=== PATIENT | female | born 1945 | race Caucasian/White ===

== ENCOUNTER 2017-01-12 05:36 | Day surgery (SDC) | payer MEDICARE, BC ==
[~2017-01-12 05:36] MED LIST: Dextrose 5%-0.45% NaCl 1,000 ML IV SCH; Sodium Chloride 0.9% 10 ML Syringe FLUSH PRN
[2017-01-12] MEDS ORDERED: Dextrose 5%-0.45% NaCl 1,000 ML IV SCH (06:00)
[2017-01-12] MEDS ORDERED: Sodium Chloride 0.9% 10 ML Syringe FLUSH PRN (06:00)
[2017-01-12] MEDS ORDERED: Midazolam 1 MG/ML 2 ML SDV ONE (06:15)
[2017-01-12] MEDS ORDERED: fentaNYL 100 MCG/2 ML SDV ONE (06:15)
[2017-01-12] MEDS ORDERED: fentaNYL 100 MCG/2 ML SDV IV ONE ×3 (06:33→14:54)
[2017-01-12] MEDS ORDERED: Midazolam 1 MG/ML 2 ML SDV IV ONE ×3 (06:33→14:54)
[2017-01-12 10:48] VITALS: BP 125/66
--- NOTE | 2017-01-12 12:23 | OR ---
DATE: 01/12/2017 PROCEDURE: Esophagogastroduodenoscopy and multiple pinch biopsies. INSTRUMENT USED: GIF-H180 Olympus video panendoscope. PREMEDICATIONS: No oral topical anesthesia used. Fentanyl 100 mcg intravenous, Versed 2 mg intravenous, nasal O2 cannula. The procedure was done under pulse oximetry, BP recording, and awake overnight monitor. INDICATION: The patient with persistent heartburn, dyspepsia, and upper abdominal pain, unexplained, and not responsive to medical measures, on long- term PPI, also on aspirin related medications. Esophagogastroduodenoscopy is performed for detection of any active erosive lesions, Rick esophagus and/or malignancy also under consideration, H. pylori status to be determined, endoscopic hemostasis therapy if needed. DESCRIPTION OF PROCEDURE: The scope was passed with ease. Adequate visualization of the esophagus was made from proximal to distal areas. No upper esophageal lesions identified. No distal esophageal stricture. No uphill or downhill esophageal varices. No Aide-Mckeon tear. Grade A erosive changes were noted by [place] criteria. No esophageal polyp or tumor mass identified. Z-line was seen at around 35 cm distal to the oral verge, 4 quadrant biopsies were taken and sent for any evidence of Rick esophagus. No proximal gastric varices noted. Gastric fundus examination by retroflexion showed no polypoid lesions. No gastric ulcer, malignant mass, or vascular ectasia identified. Gastric antral erosions were noted. Multiple pinch biopsies were taken from the gastric antrum and proximal body and sent for PyloriTek test for H. pylori and histopathology. Duodenal bulb showed no ulcer. Visualized second part of the duodenum was unremarkable. No bleeding was noted from any of the visualized areas at the completion of examination. Photographs were taken of the duodenal bulb, gastric antrum, fundus, and distal esophagus. IMPRESSION: 1. Grade A gastroesophageal reflux disease. 2. Gastric antral erosions. The patient tolerated the procedure well. [facility] /[id number] SEPIDEH
== END 2017-01-12 09:00 | disposition home or self-care (01) ==
LOC: DL.ENDO 05:36
PROVIDERS: ATTEND Internal Medicine Gastroenterology
DX: K29.50 Unspecified chronic gastritis without bleeding (principal); B33.20 Viral carditis, unspecified; E66.9 Obesity, unspecified; F32.9 Major depressive disorder, single episode, unspecified; E78.5 Hyperlipidemia, unspecified; K21.9 Gastro-esophageal reflux disease without esophagitis; Z88.8 Allergy status to other drugs, medicaments and biological substances; Z90.49 Acquired absence of other specified parts of digestive tract; Z90.710 Acquired absence of both cervix and uterus
CPT/HCPCS: 43239; 87077; J2250; J3010; J7042; 88305

== ENCOUNTER 2019-08-04 07:31 | Day surgery (SDC) | payer MEDICARE, BC ==
[~2019-08-04 07:31] MED LIST changes: -Dextrose 5%-0.45% NaCl 1,000 ML IV SCH; +Midazolam 1 MG/ML 2 ML SDV ONE; -Sodium Chloride 0.9% 10 ML Syringe FLUSH PRN; +fentaNYL 100 MCG/2 ML SDV ONE
[2019-08-04] MEDS ORDERED: fentaNYL 100 MCG/2 ML SDV IV ONE ×3 (07:32→08:50)
[2019-08-04] MEDS ORDERED: Midazolam 1 MG/ML 2 ML SDV IV ONE ×3 (07:32→08:52)
[2019-08-04] MEDS ORDERED: Dextrose 5%-0.45% NaCl 1,000 ML IV SCH (08:45)
[2019-08-04 09:02] VITALS: BP 161/97; PULSE 84
--- NOTE | 2019-08-04 11:51 | OR ---
DATE: 08/04/2019 PROCEDURES: Esophagogastroduodenoscopy and multiple pinch biopsies. INSTRUMENT USED: GIF-HQ190 Olympus video panendoscope. PREMEDICATIONS: No oral or topical anesthesia used. Fentanyl 100 mcg intravenous, Versed 2 mg intravenous, nasal O2 cannula. The procedure was done under pulse oximetry, BP recording, and front desk monitor. INDICATION: The patient with long-standing heartburn, continuing to have difficulties in spite of PPI therapy. Esophagogastroduodenoscopy is performed for detection of any active erosive lesions, Rick esophagus and/or malignancy also under consideration, H pylori status to be determined, endoscopic hemostasis therapy if needed. PROCEDURE IN DETAIL: The scope was passed with ease. Adequate visualization of the esophagus was made proximal to distal areas. No upper esophageal lesions identified. No distal esophageal stricture. No uphill or downhill esophageal viruses. No Aide-Mckeon tear. No evidence of erosive esophagitis by [place] criteria. Sliding hiatal hernia was noted. 4-quadrant biopsies were taken from the pink columnar epithelium noted at 35 cm distal to the oral verge, and tissues sent for any histopathologic evidence of intestinal metaplasia. No esophageal polyp or tumor mass identified. No proximal gastric varices noted. Gastric fundus examination by retroflexion showed no polypoid lesions. No gastric ulcer, malignant mass, or vascular ectasia identified. Numerous scattered gastric antral erosions were noted without bleeding from them. Duodenal bulb showed no ulcer. Visualized second part of the duodenum was unremarkable. Multiple pinch biopsies were taken from the gastric antrum and proximal body and sent for PyloriTek test for H pylori and histopathology. No bleeding was noted from any of the visualized areas at the completion of examination. Photographs were taken of the duodenal bulb, gastric antrum, fundus, and distal esophagus. IMPRESSION: 1. Sliding hiatal hernia. 2. Gastric antral erosions. The patient tolerated the procedure well. [facility] /[id number]
--- NOTE | 2019-08-04 12:54 | LETTER ---
08/04/2019 Roxana Hackett MD [address] [address] RE: GRABIEL YOUNG : [address] Hackett: Ms. Grabiel Young had esophagogastroduodenoscopy done this morning and she tolerated the procedure well. I herewith send a copy of the endoscopy note and photographs for your review. Thank you. Sincerely, [facility] /[id number]
--- NOTE | 2019-08-10 08:15 | LETTER ---
08/09/2019 Roxana Hackett MD [address] [address] RE: GRABIEL YOUNG : [address] Hackett: Ms. Grabiel Young had esophagogastroduodenoscopy done and she tolerated the procedure well. I herewith send a copy of the endoscopy note and photographs for your review. Thank you. Sincerely, [facility] /[id number]
== END 2019-08-04 11:09 | disposition home or self-care (01) ==
LOC: DL.ENDO 07:31
PROVIDERS: ATTEND Internal Medicine Gastroenterology
DX: K29.50 Unspecified chronic gastritis without bleeding (principal); K44.9 Diaphragmatic hernia without obstruction or gangrene; K22.8 Other specified diseases of esophagus; K25.9 Gastric ulcer, unspecified as acute or chronic, without hemorrhage or perforation; K21.9 Gastro-esophageal reflux disease without esophagitis; M19.90 Unspecified osteoarthritis, unspecified site; E78.00 Pure hypercholesterolemia, unspecified; E78.1 Pure hyperglyceridemia; H93.19 Tinnitus, unspecified ear; G47.00 Insomnia, unspecified; M79.7 Fibromyalgia; G89.4 Chronic pain syndrome; M54.5 Low back pain; R73.9 Hyperglycemia, unspecified; E66.8 Other obesity; Z68.25 Body mass index [BMI] 25.0-25.9, adult; Z88.8 Allergy status to other drugs, medicaments and biological substances; Z79.899 Other long term (current) drug therapy; Z90.89 Acquired absence of other organs; Z98.890 Other specified postprocedural states; Z80.0 Family history of malignant neoplasm of digestive organs; Z83.71 Family history of colonic polyps
CPT/HCPCS: 43239; 87077; J2250; J3010; J7042

== ENCOUNTER → 2019-08-11 | Day surgery (SDC) | payer MEDICARE, BC ==
[~2019-08-11] MED LIST changes: +Dextrose 5%-0.45% NaCl 1,000 ML IV SCH; +Midazolam 1 MG/ML 2 ML SDV IV ONE; +fentaNYL 100 MCG/2 ML SDV IV ONE
--- NOTE | 2019-08-11 09:54 | OR ---
DATE: 08/11/2019 PROCEDURE: Total colonoscopy. INSTRUMENT USED: PCF-H190DL Olympus video colonoscope. PREMEDICATIONS: Fentanyl 200 mcg intravenous, Versed 6 mg intravenous, nasal O2 cannula. The procedure was done under pulse oximetry, BP recording, and asw specialist. INDICATION: The patient with rectal bleeding. Colonoscopic examination is done for detection of any polypoid lesions and removal, endoscopic hemostasis therapy if needed. DESCRIPTION OF PROCEDURE: Initial rectal exam showed small external hemorrhoidal tags. Rigid anoscopy showed small internal hemorrhoids without bleeding from them. The colonoscope was passed with ease. Scattered diverticula were noted in the distal left colon along with deformity. The examination was prolonged and technically a difficult exam due to presence of adhesions. The scope was passed up to the cecal area, photographs were taken. The examination was compromised due to the presence of significant amount of fecal material which could not be aspirated, especially in the right colon. In the proximal transverse colon area, more than 1 cm sized sessile benign- appearing polyp was noted, NBI views were obtained, photographs were taken. No bleeding was noted from any of the visualized areas at the commencement of the examination. No stricture. No vascular ectasia. No large isolated ulcerations seen. No evidence of diffuse inflammatory bowel disease in the form of friability, contact bleeding, or ulcerations. Probing the proximal sides of folds and flexures using adequate distention and clearing up the stool material, withdrawal of the scope was made. No bleeding was noted from any of the visualized areas at the completion of examination. IMPRESSION: External and internal hemorrhoids.Diverticulosis. Sessile colonic polyp. The patient tolerated the procedure well. [facility] /[id number] SEPIDEH
--- NOTE | 2019-08-11 10:18 | LETTER ---
08/11/2019 Roxana Hackett MD [address] [address] RE: GRABIEL YOUNG : [address] Hackett: Grabiel Young had colonoscopic examination done this morning and she tolerated the procedure well. I herewith send a copy of the endoscopy note and photographs for your review. Thank you. Sincerely, [facility] /[id number]
[2019-08-11 10:58] VITALS: BP 133/63; PULSE 79
== END | disposition home or self-care (01) ==
LOC: DL.ENDO 07:24
PROVIDERS: ATTEND Internal Medicine Gastroenterology
DX: K64.8 Other hemorrhoids (principal); K57.30 Diverticulosis of large intestine without perforation or abscess without bleeding; K66.0 Peritoneal adhesions (postprocedural) (postinfection); K64.4 Residual hemorrhoidal skin tags; K63.5 Polyp of colon
CPT/HCPCS: 45378; J2250; J3010; J7042; G0121

== ENCOUNTER 2021-02-11 06:31 | Day surgery (SDC) | payer MEDICARE, BC ==
[~2021-02-11 06:31] MED LIST changes: -Midazolam 1 MG/ML 2 ML SDV IV ONE; +Sodium Chloride 0.9% 10 ML Syringe FLUSH PRN; -fentaNYL 100 MCG/2 ML SDV IV ONE
[2021-02-11] MEDS ORDERED: fentaNYL 100 MCG/2 ML SDV IV ONE ×7 (06:32→08:12)
[2021-02-11] MEDS ORDERED: Midazolam 1 MG/ML 2 ML SDV IV ONE ×7 (06:32→08:04)
--- NOTE | 2021-02-11 09:55 | OR ---
DATE: 02/11/2021 PROCEDURE: Total colonoscopy. INSTRUMENT USED: PCF-H190DL Olympus video colonoscope. PREMEDICATIONS: Fentanyl 200 mcg intravenous, Versed 4 mg intravenous, nasal O2 cannula. The procedure was done under pulse oximetry, BP recording, and monitor car operator. INDICATION: The patient with previous multiple colonic polyps including a sessile was removed. Surveillance colonoscopic examination is done for detection of any residual polyp tissue and removal, endoscopic hemostasis therapy if needed. DESCRIPTION OF PROCEDURE: Initial rectal exam was unremarkable. Rigid anoscopy was normal. The colonoscope was passed up to the cecal area. The colon was found to be tortuous and redundant, exam prolonged. There was a large amount of fecal material that had to be cleared. No bleeding was noted from any of the visualized areas at the commencement of the examination. The bowel preparation was found to be inadequate, [place] scale 1 in right colon, 2 in transverse and left colon, total score 5. In the right colon, Hemoclip device was noted with residual polyp tissue around. NBI views were obtained, photographs were taken. No stricture. No vascular ectasia. No large isolated ulcerations seen. No evidence of diffuse inflammatory bowel disease in the form of friability, contact bleeding, or ulcerations. Probing the proximal sides of folds and flexures using adequate distention and clearing up the stool material, withdrawal of the scope was made. No bleeding was noted from any of the visualized areas at the completion of examination. IMPRESSION: Colonic polyp. The patient tolerated the procedure well. [facility] /[id number]
[2021-02-11 10:33] VITALS: BP 139/98; PULSE 79
== END 2021-02-11 10:35 | disposition home or self-care (01) ==
LOC: DL.ENDO 06:31
PROVIDERS: ATTEND Internal Medicine Gastroenterology
DX: Z12.11 Encounter for screening for malignant neoplasm of colon (principal); K63.5 Polyp of colon; K21.9 Gastro-esophageal reflux disease without esophagitis; G89.4 Chronic pain syndrome
CPT/HCPCS: G0105; J2250; J3010; J7042

== ENCOUNTER 2022-01-29 12:04 | Emergency (ER) | payer MEDICARE, BC ==
[2022-01-29 12:45] VITALS: BP 141/87; PULSE 86
[2022-01-29] MEDS: Sodium Chloride 0.9% 10 ML Syringe FLUSH PRN (12:45)
[2022-01-29 12:54] LABS: ANION GAP 12.8 mEq/L (7-13)
== END 2022-01-29 15:53 | disposition home or self-care (01) ==
LOC: DL.ED 12:04
DX: F41.9 Anxiety disorder, unspecified (principal); E78.00 Pure hypercholesterolemia, unspecified; K21.9 Gastro-esophageal reflux disease without esophagitis; Z88.4 Allergy status to anesthetic agent; Z88.8 Allergy status to other drugs, medicaments and biological substances; Z79.899 Other long term (current) drug therapy; Z79.82 Long term (current) use of aspirin; Z90.49 Acquired absence of other specified parts of digestive tract; Z90.710 Acquired absence of both cervix and uterus; Z20.822 Contact with and (suspected) exposure to COVID-19
CPT/HCPCS: 36415; 70450; 80053; 82607; 82947; 83735; 84443; 85025; 85610; 93005; 99284; J3490; U0002

== ENCOUNTER 2022-01-31 10:14 | Emergency (ER) | payer MEDICARE, BC ==
[2022-01-31 10:41] VITALS: BP 152/90; PULSE 82
== END 2022-01-31 11:30 | disposition home or self-care (01) ==
LOC: DL.ED 10:14
DX: R20.2 Paresthesia of skin (principal); F41.8 Other specified anxiety disorders; E78.00 Pure hypercholesterolemia, unspecified; Z79.899 Other long term (current) drug therapy; Z88.8 Allergy status to other drugs, medicaments and biological substances; Z79.82 Long term (current) use of aspirin
CPT/HCPCS: 99283

== ENCOUNTER 2024-07-05 09:16 | Emergency (ER) | payer MEDICARE, BC ==
[2024-07-05 09:38] VITALS: BP 133/74; PULSE 83
[2024-07-05] MEDS ORDERED: Sodium Chloride 0.9% 10 ML Syringe FLUSH PRN (09:48)
[2024-07-05 10:17] LABS: EOSINOPHILS PERCENT AUTO 3.5 % (1.0-3.0); HEMATOCRIT 37.7 % (37.0-47.0); LYMPHOCYTES PERCENT AUTO 36.8 % (20.5-50.1); MEAN CORPUSCULAR HEMOGLOBIN 30.4 pg (27.0-34.0); MEAN CORPUSCULAR HGB CONC 31.8 g/dL (33.0-35.0); MEAN CORPUSCULAR VOLUME 95.4 fL (80-100); MONOCYTES PERCENT AUTO 11.9 % (2-8); NEUTROPHILS PERCENT AUTO 46.8 % (42.2-75.2); PLATELET COUNT,PLT 357 10^3/uL (150-450); RED BLOOD CELL COUNT 3.95 10^6/uL (4.2-5.4); WHITE BLOOD CELL COUNT,WBC 6.8 10^3/uL (5.0-10.0)
[2024-07-05] MEDS: Iopamidol 755 Mg/ML 100 ML Bottle IVPUSH ONE (10:17)
[2024-07-05 10:37] LABS: PTT,PARTIAL THROMBOPLSTIN TIME 25.9 SEC (22.0-34.0)
[2024-07-05 10:46] LABS: ALANINE AMINOTRANSFERASE,ALT 23 U/L (14-59); ALBUMIN 3.5 g/dL (3.4-5.0); ALKALINE PHOSPHATASE 70 U/L (46-116); ASPARTATE AMNIOTRANSFERASE,AST 11 U/L (15-37); BILIRUBIN TOTAL 0.7 mg/dL (0.2-1.0); BLOOD UREA NITROGEN,BUN 17 mg/dL (7-18); BUN/CREATININE RATIO 20.5 (No establ ref range); CALCIUM 9.2 mg/dL (8.5-10.1); CARBON DIOXIDE,CO2 26 mmol/L (21-32); CHLORIDE,CL 105 mmol/L (98-107); CREATININE 0.83 mg/dL (0.55-1.02); ESTIMATED GFR 73 mL/min (>=60); GLUCOSE RANDOM 94 mg/dL (70-99); PROTEIN TOTAL,TP 6.9 g/dL (6.4-8.2); SODIUM,NA 144 mmol/L (136-145)
[2024-07-05] MEDS: Heparin Sodium 5,000 Units/ML Vial IV ONE (12:12)
[2024-07-05] MEDS: Heparin Sodium/0.45% NaCl 25,000 UNITS/500 ML BAG IV SCH (12:17)
== END 2024-07-05 12:19 ==
LOC: DL.ED 09:16
DX: I63.9 Cerebral infarction, unspecified (principal); I10 Essential (primary) hypertension; E78.00 Pure hypercholesterolemia, unspecified; K21.9 Gastro-esophageal reflux disease without esophagitis; M19.90 Unspecified osteoarthritis, unspecified site; Z90.49 Acquired absence of other specified parts of digestive tract; Z90.710 Acquired absence of both cervix and uterus; Z88.8 Allergy status to other drugs, medicaments and biological substances; Z79.82 Long term (current) use of aspirin; Z79.899 Other long term (current) drug therapy
CPT/HCPCS: 36415; 70450; 70496; 70498; 80053; 84484; 85025; 85610; 85730; 93005; 96374; 99285; J1644; Q9967; 93010

== ENCOUNTER 2024-11-03 05:55 | Day surgery (SDC) | payer MEDICARE, BC ==
[2024-11-03] MEDS: Dextrose 5%-0.45% NaCl 1,000 ML IV SCH (06:10)
[2024-11-03] MEDS ORDERED: fentaNYL 100 MCG/2 ML SDV IV ONE (06:14)
[2024-11-03] MEDS ORDERED: Midazolam 1 MG/ML 2 ML SDV ONE (06:14)
[2024-11-03] MEDS ORDERED: fentaNYL 100 MCG/2 ML SDV ONE (06:14)
[2024-11-03] MEDS ORDERED: Midazolam 1 MG/ML 2 ML SDV IV ONE (06:14)
[2024-11-03] MEDS: fentaNYL 100 MCG/2 ML SDV IV ONE ×2 (07:07→07:08)
[2024-11-03] MEDS: Midazolam 1 MG/ML 2 ML SDV IV ONE ×3 (07:09→07:11)
[2024-11-03 08:58] VITALS: BP 109/52; PULSE 70
== END 2024-11-03 08:40 | disposition home or self-care (01) ==
LOC: DL.ENDO 05:55
PROVIDERS: ATTEND Internal Medicine Gastroenterology
DX: D64.9 Anemia, unspecified (principal); R63.4 Abnormal weight loss; R10.9 Unspecified abdominal pain; Z88.8 Allergy status to other drugs, medicaments and biological substances
CPT/HCPCS: 43239; 88305; J2250; J3010

== ENCOUNTER 2024-12-09 06:51 | Day surgery (SDC) | payer MEDICARE, BC ==
[~2024-12-09 06:51] MED LIST changes: -Dextrose 5%-0.45% NaCl 1,000 ML IV SCH; -Midazolam 1 MG/ML 2 ML SDV ONE; +Propofol 200 MG/20 ML SDV ONE; -Sodium Chloride 0.9% 10 ML Syringe FLUSH PRN; -fentaNYL 100 MCG/2 ML SDV ONE
[2024-12-09] MEDS: Lactated Ringers 1,000 ML IV SCH (07:15)
[2024-12-09 13:36] VITALS: BP 144/54; PULSE 79
== END 2024-12-09 09:45 | disposition home or self-care (01) ==
LOC: DL.ENDO 06:51
PROVIDERS: ATTEND Internal Medicine Gastroenterology
DX: Z12.11 Encounter for screening for malignant neoplasm of colon (principal); R19.5 Other fecal abnormalities; K57.30 Diverticulosis of large intestine without perforation or abscess without bleeding; Z86.0101 Personal history of adenomatous and serrated colon polyps; K21.9 Gastro-esophageal reflux disease without esophagitis
CPT/HCPCS: G0105; J7120